=== PATIENT | female | born 1950 | race Asian ===

== ENCOUNTER 2021-08-18 22:29 | Observation (INO) | payer MEDICARE, OTHER ==
[~2021-08-18 22:29] MED LIST: Iopamidol 370 76% 100 ML VIAL ONE
[2021-08-18 22:48] LABS: #Basophils 0.1 10x3/uL (0.0-0.2); #Eosinphils 0.2 10x3/uL (0.0-0.5); #Monocytes 0.8 10x3/uL (0.0-1.1); #Neutrophils 3.2 10x3/uL (1.5-8.4); %Basophils 1.1 % (0.0-2.0); %Eosinophils 2.1 % (0.0-6.0); %Lymphocytes 40.9 % (18.0-47.0); %Monocytes 11.4 % (0.0-10.0); %Neutrophils 44.2 % (40.0-75.0); Mean Corpuscular HGB CONC 33.4 g/dL (32.0-36.0); Mean Corpuscular Hemoglobin 31.2 pg (27.0-33.0); Mean Corpuscular Volume 93.3 fl (81.6-98.3); Mean Platelet Volume 9.7 fl (7.4-10.4); Platelet Count 232 10x3/uL (150-450); Red Blood Cell (RBC) Count 4.17 10x6/uL (3.90-5.03); White Blood Cell (WBC) Count 7.2 10x3/uL (3.5-10.5)
[2021-08-18] MEDS ORDERED: Lidocaine 1% w/Epinephrine 1:100K 20 ML VIAL ONE (22:48)
[2021-08-18 23:06] LABS: ALT (SGPT) 19 U/L (8-55); AST (SGOT) 31 U/L (5-34); Alkaline Phosphatase 68 U/L (40-110); Anion Gap 18 mmol/L (10-20); BUN (Urea Nitrogen) 17 mg/dL (9.8-20.1); Bilirubin, Total 0.4 mg/dL (0.2-1.2); CK (CPK) 188 U/L (29-168); Calc. Creatinine Clearance 0 mL/min (70-130); Carbon Dioxide 24 mmol/L (23-31); Chloride 102 mmol/L (98-107); Glucose 124 mg/dL (83-110); Lipase 26 U/L (8-78); Potassium 4.6 mmol/L (3.5-5.1); Sodium 139 mmol/L (136-145)
[2021-08-19] MEDS ORDERED: Acetaminophen 325 MG TAB PO PRN (02:10)
[2021-08-19] MEDS ORDERED: Boostrix 0.5 ML (Tdap) VIAL ONE (02:23)
[2021-08-19] MEDS: Sodium Chloride 0.9% 1,000 ML IV SCH ×2 (02:34→16:32)
[2021-08-19 02:52] LABS: Magnesium 2.1 mg/dL (1.6-2.6)
[2021-08-19 04:21] LABS: SARS-CoV-2 NAA Rapid Test Not Detected (NotDetected)
[2021-08-19 04:31] LABS: Anion Gap 16 mmol/L (10-20); BUN (Urea Nitrogen) 14 mg/dL (9.8-20.1); Calc. Creatinine Clearance 0 mL/min (70-130); Calcium 8.7 mg/dL (7.8-10.44); Carbon Dioxide 22 mmol/L (23-31); Chloride 108 mmol/L (98-107); Glucose 115 mg/dL (83-110); Potassium 3.6 mmol/L (3.5-5.1); Sodium 142 mmol/L (136-145)
[2021-08-19 04:39] LABS: Troponin I Less than 0.010 ng/mL (< 0.028)
[2021-08-19] MEDS ORDERED: Potassium Chloride 20 MEQ TAB PO SCH (07:00)
[2021-08-19] MEDS ORDERED: Potassium Chloride 20 MEQ TAB ONE (08:01)
[2021-08-19] MEDS ORDERED: Enoxaparin Sodium 40 MG/0.4 ML SYRINGE ONE (09:06)
[2021-08-19] MEDS: Enoxaparin Sodium 40 MG/0.4 ML SYRINGE SC SCH (09:30)
[2021-08-19] MEDS ORDERED: Magnevist 469MG/ML 20 ML VIAL ONE (09:33)
[2021-08-19 12:12] VITALS: BMI 25.0
[2021-08-19 14:29] LABS: Bilirubin Neg (Negative); Blood, Urine Negative (Negative); Clarity Clear (Clear); Glucose, Urine (Dipstick) Normal (Negative); Ketone, Urine Negative (Negative); Leukocyte Negative (Negative); Nitrite Negative (Negative); Protein, Urine (Dipstick) Negative (Neg-Trace); Urobilinogen Normal mg/dL (Less than 2)
[2021-08-20] MEDS ORDERED: Levothyroxine Sodium 125 MCG TAB PO SCH (06:00)
[2021-08-20] MEDS: Enoxaparin Sodium 40 MG/0.4 ML SYRINGE SC SCH (09:46)
[2021-08-20 12:36] VITALS: BP 133/62; TEMP 98.9
== END 2021-08-20 14:50 | disposition short-term general hospital (02) ==
LOC: CSHERS 22:29 → INTOOBSV 08-19 02:27 → CSHERHOLD 08-19 02:27 → CSHTELE 08-19 10:36
PROVIDERS: ADMIT Family Medicine; ATTEND Internal Medicine
DX: R55 Syncope and collapse (principal); I44.7 Left bundle-branch block, unspecified; R56.9 Unspecified convulsions; E03.9 Hypothyroidism, unspecified; R73.03 Prediabetes; E22.1 Hyperprolactinemia; I51.7 Cardiomegaly; I87.2 Venous insufficiency (chronic) (peripheral); Z20.822 Contact with and (suspected) exposure to COVID-19; Z79.899 Other long term (current) drug therapy; Z88.2 Allergy status to sulfonamides
CPT/HCPCS: 12001; 36415; 70450; 70553; 71045; 71275; 80048; 80053; 81003; 82550; 83690; 83735; 83880; 84146; 84443; 84484; 85025; 85379; 90471; 90715; 93005; 93010; 93306; 96360; 96361; J1650; J7050; Q9967; U0002

== ENCOUNTER 2021-08-29 05:36 | Day surgery (SDC) | payer MEDICARE, OTHER ==
[2021-08-29] MEDS ORDERED: Vancomycin HCl 500 MG VIAL ONE (06:16)
[2021-08-29 06:18] VITALS: TEMP 98.1
[2021-08-29] MEDS ORDERED: CEFAZOLIN 1 GM VIAL ONE (06:33)
[2021-08-29] MEDS ORDERED: Gentamicin 80 MG/2 ML VIAL ONE (06:33)
[2021-08-29] MEDS ORDERED: Lidocaine 1% 20 ML MDV ONE (06:33)
[2021-08-29] MEDS ORDERED: Midazolam HCl 2 mg/2 ml Vial ONE (06:57)
[2021-08-29] MEDS ORDERED: Fentanyl 100 MCG/2 ML VIAL ONE (06:57)
[2021-08-29] MEDS ORDERED: Iopamidol 300 61% 50 ML VIAL FS ONE (09:12)
== END 2021-08-29 14:29 | disposition home or self-care (01) ==
LOC: CSHCCL 05:36
PROVIDERS: ATTEND Internal Medicine Cardiovascular Disease
DX: I44.2 Atrioventricular block, complete (principal); R00.1 Bradycardia, unspecified; I44.7 Left bundle-branch block, unspecified; E03.9 Hypothyroidism, unspecified; I87.2 Venous insufficiency (chronic) (peripheral); Z79.899 Other long term (current) drug therapy; Z88.2 Allergy status to sulfonamides
CPT/HCPCS: 33208; 71045; 93005; 93010; 99152; 99153; C1763; C1785; C1898; J0690; J1580; J2250; J3010; J3370